=== PATIENT | male | born 1955 | race Caucasian/White ===

== ENCOUNTER 2016-09-12 13:16 | Observation (INO) | payer OTHER ==
[~2016-09-12] VITALS: Ht 182.9 cm; Wt 125.6 kg
[2016-09-12 16:19] LABS: HEMOGLOBIN 15.4 gm/dl (14.0-17.5); RED BLOOD COUNT 5.11 M/UL (4.20-5.50); WHITE BLOOD COUNT 12.1 K/UL (4.5-11.0)
[2016-09-12 16:35] LABS: BUN/CREATININE RATIO 12 (0-10)
[2016-09-12] MEDS ORDERED: NEURONTIN 300300 MG PO (22:20)
[2016-09-12] MEDS ORDERED: LORTAB 7.5-3251 EACH PO (22:20)
[2016-09-12] MEDS ORDERED: HYDROCHLOROTHIA25 MG PO (22:21)
[2016-09-12] MEDS ORDERED: LOSARTAN POTAS100 MG PO (22:21)
[2016-09-14] MEDS ORDERED: PERCOCET 10-321 EACH PO (14:12)
== END 2016-09-14 15:07 | disposition home or self-care (01) ==
LOC: ER1 13:16 → ZEROF 17:37 → MED SURG 4 17:37
PROVIDERS: Emergency Medicine; ADMIT Orthopaedic Surgery
PROC: 0PSH04Z Reposition Right Radius with Internal Fixation Device, Open Approach (ICD-10-PCS; principal; 2016-09-13 10:00)
DX: S52.571A Other intraarticular fracture of lower end of right radius, initial encounter for closed fracture (principal); I10 Essential (primary) hypertension; M19.90 Unspecified osteoarthritis, unspecified site; Z98.1 Arthrodesis status; Z88.2 Allergy status to sulfonamides; Z79.899 Other long term (current) drug therapy; Z88.1 Allergy status to other antibiotic agents; W11.XXXA Fall on and from ladder, initial encounter; Y92.89 Other specified places as the place of occurrence of the external cause
CPT/HCPCS: 36415; 70450; 71020; 72070; 72125; 73030; 73080; 73090; 73100; 73110; 76000; 80048; 85025; 85610; 85730; 96361; 96374; 96375; 96376; 99285; C1713; G0378; J0690; J1885; J2250; J2270; J2405; J2795; J3010; J3360; J7120